=== PATIENT | female | born 1995 | race Caucasian/White ===

== ENCOUNTER 2020-11-05 15:50 | Outpatient (CLI) | payer OTHER ==
[2020-11-05] MEDS ORDERED: RINGERS SOLUTION,LACTATED 1,000 ML IV ONE (16:07)
[2020-11-05] MEDS ORDERED: RINGERS SOLUTION,LACTATED 1,000 ML IV PRN (16:07)
[2020-11-05] MEDS ORDERED: CEFTRIAXONE 1 GM/D5W RTU 1 GM/50 ML RTUPB IV ONE (16:29)
[2020-11-05 17:01] LABS: APPEARANCE,URINE SLIGHTLY-CLOUDY; BILIRUBIN,URINE NEGATIVE (NEGATIVE); COLOR,URINE YELLOW; GLUCOSE, URINE NEGATIVE (NEGATIVE); KETONES,URINE NEGATIVE (NEGATIVE); LEUKOCYTE ESTERASE,URINE TRACE (NEGATIVE); NITRITE,URINE NEGATIVE (NEGATIVE); PROTEIN,URINE 30 mg/dL (NEGATIVE); URINE SPECIFIC GRAVITY 1.019; UROBILINOGEN,URINE NEGATIVE mg/dL (<2.0)
[2020-11-05 17:12] LABS: ABSOLUTE MONOCYTES (AUTO) 0.4 10^3/uL (0.1-1.4); ABSOLUTE NEUT (AUTO) 10.6 10^3/uL (1.7-8.2); BASOPHILS % (AUTO) 0.2 % (0-2); EOSINOPHILS % (AUTO) 0.1 % (0-6); HEMATOCRIT 29.8 % (36.0-47.0); HEMOGLOBIN 10.1 g/dL (12.0-15.5); LYMPHOCYTES % (AUTO) 8.5 % (13-45); MEAN CORPUSCULAR HEMOGLOBIN 27.3 pg (27.0-33.4); MEAN CORPUSCULAR HGB CONC 33.8 g/dL (32.0-36.0); MEAN CORPUSCULAR VOLUME 81 fl (80-97); MONOCYTES % (AUTO) 3.5 % (3-13); PLATELET COUNT 267 10^3/uL (150-450); RED BLOOD COUNT 3.71 10^6/uL (3.72-5.28); RED CELL DISTRIBUTION WIDTH 13.3 % (11.5-14.0); SEGMENTED NEUTROPHILS % (AUTO) 87.7 % (42-78); TOTAL CELLS COUNTED % (AUTO) 100 %; WHITE BLOOD COUNT 12.1 10^3/uL (4.0-10.5)
[2020-11-05] MEDS ORDERED: CEFTRIAXONE INJ 1000 MG VIAL ONE (17:17)
[2020-11-05 17:31] LABS: URINE AMPHETAMINES SCREEN NEGATIVE; URINE BARBITURATES SCREEN NEGATIVE; URINE BENZODIAZEPINES SCREEN NEGATIVE; URINE COCAINE SCREEN NEGATIVE; URINE MARIJUANA (THC) SCREEN NEGATIVE; URINE METHADONE SCREEN NEGATIVE; URINE PHENCYCLIDINE SCREEN NEGATIVE
--- NOTE | 2020-11-05 18:30 | RADIOLOGY REPORT (SQ) ---
EXAM DESCRIPTION: U/S RETROPERITON (RENAL/AORTA) IMAGES COMPLETED DATE/TIME: 11/05/2020 2:35 pm REASON FOR STUDY: Left flank pain, hx kidney stones, 37 weeks gest. COMPARISON: None. TECHNIQUE: Dynamic and static grayscale images acquired of the kidneys and bladder and recorded on P ACS. Additional selected color Doppler and spectral images recorded. LIMITATIONS: None. FINDINGS: RIGHT KIDNEY: Normal size. Normal echogenicity. No solid or suspicious masses. No hydronep hrosis. No calcifications. LEFT KIDNEY: Left kidney is enlarged relative to the right, measuring up to 13.2 cm in length on the left and 9.9 cm on the right. There is mild left hydronephrosis. Possible nonobstructing calculus interpolar left kidney. No suspicious renal mass. BLADDER: No masses. OTHER FINDINGS: No other significant finding. IMPRESSION: 1. Asymmetrically enlarged left kidney with mild left hydronephrosis. Findings could b e due to hydronephrosis of or a distal obstructing calculus. A distal ureteral calculus is not visualized sonographically. 2. Normal sonographic appearance of the right kidney. TECHNICAL DOCUMENTATION: JOB ID: [id number] [employer]- All Rights Reserved Reading location - IP/workstation name: [email or web address]
--- NOTE | 2020-11-05 19:22 | Non Stress Test Report ---
Non Stress Test Datetime Report Generated by CPN: 11/05/2020 19:22 DEMOGRAPHIC EGA NST: 37.2 INDICATION Indication for Study (NST) Other: iup 37.2 weeks back pain, dehydration MONITORING Monitor Explained: Monitor Explained; Test Explained; Patient Verbalized Understanding Time on Monitor: 11/05/2020 17:40 Time off Monitor: 11/05/2020 18:15 NST Duration: 35 NST INTERVENTIONS NST Interventions: IV Fluids Physician Notified NST: Dr Nicola BABY A: [id number] BABY A Movement : Present Contraction Frequency : irregular FHR Baseline : 120 Accelerations : 15X15 Decelerations : None Variability : Moderate 6-25bpm NST Review: Meets Criteria for Reactive NST NST Review and Verified By : Tylor Garcia RN NST Results: Reactive NST REPORT Report Trigger: Send Report
== END 2020-11-05 19:22 | disposition home or self-care (01) ==
LOC: LC 15:50
PROVIDERS: ATTEND Obstetrics & Gynecology
DX: O26.893 Other specified pregnancy related conditions, third trimester (principal); M54.9 Dorsalgia, unspecified; O99.283 Endocrine, nutritional and metabolic diseases complicating pregnancy, third trimester; E86.0 Dehydration; Z3A.37 37 weeks gestation of pregnancy
CPT/HCPCS: 36415; 87086; 85025; 81005; 80307; 76770; 59025; J0696